=== PATIENT | male | born 1995 ===

== ENCOUNTER 2019-04-04 19:00 | Emergency (ER) | payer OTHER ==
[~2019-04-04] VITALS: Ht 152.4 cm; Wt 80.7 kg
== END 2019-04-04 22:34 | disposition home or self-care (01) ==
LOC: ER 19:00 → EDSEX 19:28 → ER 19:28
DX: S91.312A Laceration without foreign body, left foot, initial encounter (principal); W45.8XXA Other foreign body or object entering through skin, initial encounter; Y93.89 Activity, other specified; Y92.832 Beach as the place of occurrence of the external cause; Y99.8 Other external cause status

== ENCOUNTER 2019-04-12 10:09 | Emergency (ER) | payer OTHER ==
[~2019-04-12] VITALS: Ht 170.2 cm; Wt 76.2 kg
== END 2019-04-12 11:11 | disposition home or self-care (01) ==
LOC: ER 10:09
DX: Z48.02 Encounter for removal of sutures (principal)